=== PATIENT | male | born 1970 | race African-American/Black ===

== ENCOUNTER 2022-10-03 11:34 | Inpatient (IN) | payer OTHER ==
[2022-10-03 14:38] VITALS: BMI 24.7
[2022-10-03] MEDS ORDERED: LOPERAMIDE HCL 2 MG CAPSULE PO PRN (14:39)
[2022-10-03] MEDS ORDERED: ACETAMINOPHEN 325 MG TABLET (FP) PO PRN (14:39)
[2022-10-03] MEDS ORDERED: ONDANSETRON *ODT* 4 MG TABLET SL PRN (14:39)
[2022-10-03] MEDS ORDERED: BISMUTH SUBSALICYLATE 524 MG/30 ML PO PRN (14:39)
[2022-10-03] MEDS ORDERED: BENZOCAINE/MENTHOL (CHLORASEPTIC ) LOZENGE MM PRN (14:39)
[2022-10-03] MEDS ORDERED: NALOXONE HCL (KLOXXADO) 8 MG SPRAY NS PRN (14:39)
[2022-10-03] MEDS ORDERED: MAGNESIUM HYDROX 2400MG/30ML ORAL SUSPENSION 30 ML CUP PO PRN (14:39)
[2022-10-03] MEDS ORDERED: BENZONATATE 200 MG CAPSULE PO PRN (14:39)
[2022-10-03] MEDS ORDERED: guaiFENesin 600 MG TABLET.ER (FP) PO PRN (14:39)
[2022-10-03] MEDS ORDERED: MAG HYDROX/AL HYDROX/SIMETH 30 ML UNIT-DOSE CUP PO PRN (14:39)
[2022-10-03] MEDS ORDERED: DICYCLOMINE HCL 10 MG CAPSULE PO PRN (14:39)
[2022-10-03] MEDS ORDERED: chlordiazePOXIDE HCL 25 MG CAPSULE PO PRN (14:39)
[2022-10-03] MEDS ORDERED: POLYETHYLENE GLYCOL (HEALTHYLAX) 3350 17 GM PACKET PO PRN (14:39)
[2022-10-03] MEDS ORDERED: NALOXONE HCL 0.4 MG/ML VIAL IM PRN (14:39)
[2022-10-03] MEDS ORDERED: chlordiazePOXIDE HCL 25 MG CAPSULE PO ONE (14:39)
[2022-10-03] MEDS ORDERED: chlordiazePOXIDE HCL 25 MG CAPSULE ONE (15:23)
[2022-10-03] MEDS: chlordiazePOXIDE HCL 25 MG CAPSULE PO SCH ×2 (17:56→22:45)
[2022-10-03 22:13] LABS: EPI CELLS >36 /uL (0-25.1); HYALINE CASTS 18 /uL (0-3.1); PH,URINE 5.5 (5.0-8.0); URINE APPEARANCE TURBID; URINE BACTERIA 8 /uL (0-1359); URINE BILIRUBIN NEGATIVE (NEGATIVE); URINE COLOR DK YELLOW; URINE GLUCOSE (UA) NEGATIVE (NEGATIVE); URINE KETONE TRACE (NEGATIVE); URINE LEUK ESTERASE 2+ (NEGATIVE); URINE NITRITE NEGATIVE (NEGATIVE); URINE PROTEIN 1+ (NEGATIVE); URINE RBC 15 /uL (0-23.9); URINE WBC 225 /uL (0-25.8)
[2022-10-03] MEDS: MELATONIN 5 MG TABLETS PO SCH (22:45)
[2022-10-03] MEDS: THIAMINE HCL 100 MG TABLET (FP) PO SCH (22:45)
[2022-10-04] MEDS: METHOCARBAMOL 500 MG TABLET PO PRN (04:04)
[2022-10-04] MEDS: chlordiazePOXIDE HCL 25 MG CAPSULE PO SCH ×4 (05:35→22:41)
[2022-10-04] MEDS: IBUPROFEN 400 MG TABLET (FP) PO PRN (05:37)
[2022-10-04] MEDS: PRENATAL VITAMINS W/ FOLIC ACID TABLET (FP) PO SCH (10:18)
[2022-10-04 11:47] LABS: HEMATOCRIT 39.6 % (35.4-49); HEMOGLOBIN 13.3 GM/dL (11.7-16.9); MCH 29.2 pg (25.7-33.7); MCHC 33.5 g/dl (32.0-35.9); MEAN CELL VOLUME 87.4 fl (80-96); MEAN PLT VOLUME 8.8 fl (7.5-11.1); PLATELET COUNT 255 10^3/uL (134-434); RBC 4.53 M/mm3 (4.00-5.60)
[2022-10-04 11:51] LABS: CALCIUM 9.5 mg/dL (8.5-10.1)
[2022-10-04 11:52] LABS: ALBUMIN 3.6 g/dl (3.4-5.0)
[2022-10-04 11:54] LABS: BLOOD UREA NITROGEN 13.8 mg/dL (7-18)
[2022-10-04 11:55] LABS: CREATININE 1.3 mg/dL (0.55-1.3)
[2022-10-04 11:57] LABS: BILIRUBIN,TOTAL 0.9 mg/dL (0.2-1)
[2022-10-04 12:06] LABS: SICKLE CELL SCREEN NEGATIVE (NEGATIVE)
[2022-10-04] MEDS: THIAMINE HCL 100 MG TABLET (FP) PO SCH (22:45)
[2022-10-04] MEDS: MELATONIN 5 MG TABLETS PO SCH (22:45)
[2022-10-05] MEDS: IBUPROFEN 400 MG TABLET (FP) PO PRN (00:54)
[2022-10-05] MEDS: METHOCARBAMOL 500 MG TABLET PO PRN ×2 (00:54→06:03)
[2022-10-05] MEDS: chlordiazePOXIDE HCL 25 MG CAPSULE PO SCH ×2 (06:01→10:24)
[2022-10-05] MEDS ORDERED: cloNIDine HCL 0.1 MG TABLET PO ONE (07:26)
[2022-10-05 09:37] VITALS: RESP 18
[2022-10-05] MEDS ORDERED: IBUPROFEN 400 MG TABLET (FP) PO PRN (10:21)
[2022-10-05] MEDS: PRENATAL VITAMINS W/ FOLIC ACID TABLET (FP) PO SCH (10:24)
[2022-10-05 12:50] VITALS: BP 143/90; PULSE 77; TEMP 98
[2022-10-05] MEDS ORDERED: LACTULOSE 20 GM/30 ML UDC (FOR ORAL USE ONLY) PO SCH (14:00)
[2022-10-06] MEDS ORDERED: chlordiazePOXIDE HCL 10 MG CAPSULE PO PRN
[2022-10-06] MEDS ORDERED: chlordiazePOXIDE HCL 10 MG CAPSULE PO SCH (05:00)
[2022-10-07] MEDS ORDERED: chlordiazePOXIDE HCL 10 MG CAPSULE PO SCH (05:00)
[2022-10-08] MEDS ORDERED: chlordiazePOXIDE HCL 10 MG CAPSULE PO ONE (05:00)
== END 2022-10-05 13:28 | disposition left against medical advice (07) | DRG 770 ==
LOC: YASAS 11:34 → Y3N 15:33
PROVIDERS: ADMIT Allergy & Immunology; ATTEND Surgery
PROC: HZ2ZZZZ Detoxification Services for Substance Abuse Treatment (ICD-10-PCS; principal; 2022-10-03)
DX: F10.230 Alcohol dependence with withdrawal, uncomplicated (principal); F12.20 Cannabis dependence, uncomplicated; I10 Essential (primary) hypertension; R79.89 Other specified abnormal findings of blood chemistry; Z28.310 Unvaccinated for COVID-19; Z28.9 Immunization not carried out for unspecified reason; Z59.02 Unsheltered homelessness
CPT/HCPCS: 36415; 80053; 81003; 82140; 85027; 85660; 86780; 93005; 93010; C9803-CS; U0003; U0005